=== PATIENT | female | born 1980 | race Caucasian/White ===

== ENCOUNTER 2016-07-26 18:11 | Emergency (ER) | payer OTHER | END 2016-07-26 20:39 | disposition home or self-care (01) | LOC: ER 18:11 | DX: R10.32 Left lower quadrant pain (principal); F31.9 Bipolar disorder, unspecified; F42.9 Obsessive-compulsive disorder, unspecified; F17.210 Nicotine dependence, cigarettes, uncomplicated; Z90.711 Acquired absence of uterus with remaining cervical stump; Z79.899 Other long term (current) drug therapy | CPT/HCPCS: 36415; 96374; J1885 ==